=== PATIENT | female | born 1965 | race Caucasian/White ===

== ENCOUNTER 2021-05-01 21:39 | Emergency (ER) | payer SELFPAY ==
[~2021-05-01] VITALS: Ht 152.4 cm; Wt 72.7 kg
[2021-05-01 21:42] VITALS: BP 131/92
== END 2021-05-02 00:15 | disposition left against medical advice (07) ==
LOC: EMS 21:45
DX: M79.89 Other specified soft tissue disorders (principal); Z53.21 Procedure and treatment not carried out due to patient leaving prior to being seen by health care provider

== ENCOUNTER 2021-05-12 23:25 | Inpatient (IN) | payer MEDICARE, OTHER ==
[~2021-05-12] VITALS: Ht 152.4 cm; Wt 99.8 kg
[2021-05-13] MEDS ORDERED: DiphenhydrAMINE HCL 50 MG/ML VIAL IM ONE ×2 (00:45→19:45)
[2021-05-13] MEDS ORDERED: HALOPERIDOL LACTATE 5 MG/ML VIAL IM ONE ×2 (00:45→19:45)
[2021-05-13] MEDS ORDERED: LORazepam 2 MG/ML VIAL IM ONE ×2 (00:45→19:45)
[2021-05-13] MEDS ORDERED: HALOPERIDOL 5 MG TABLET PO PRN (01:15)
[2021-05-13] MEDS ORDERED: ZOLPIDEM TARTRATE 10 MG TABLET PO PRN (01:15)
[2021-05-13 02:07] LABS: BASOPHILS % (AUTO) 0.5 % (0.0-2.0); EOSINOPHILS % (AUTO) 2.6 % (1.0-6.0); HEMATOCRIT 39.1 % (36-46); HEMOGLOBIN 13.2 g/dL (12.0-16.0); LYMPHOCYTES # (AUTO) 1.6 K/uL (1.0-4.8); LYMPHOCYTES % (AUTO) 21.5 % (22.0-44.0); MEAN CORPUSCULAR HEMOGLOBIN 30.5 pg (26.0-34.0); MEAN CORPUSCULAR HGB CONC 33.8 G/dL (31.0-37.0); MEAN CORPUSCULAR VOLUME 90 fL (80-100); MONOCYTES # (AUTO) 0.5 K/uL (0.1-1.0); MONOCYTES % (AUTO) 6.7 % (2.0-9.0); NEUTROPHILS # (AUTO) 5.2 K/uL (1.8-7.7); NEUTROPHILS % (AUTO) 68.7 % (40.0-70.0); PLATELET COUNT (AUTO) 314 K/uL (150-450); RED BLOOD CELL COUNT(AUTO) 4.34 MIL/uL (4.00-5.20); RED CELL DISTRIBUTION WIDTH 13.8 % (11.5-14.5)
[2021-05-13 02:14] LABS: ANION GAP 12 mmol/L (8-16); CALCIUM, TOTAL 9.2 mg/dL (8.8-10.5); CARBON DIOXIDE 24 mmol/L (22-29); CHLORIDE 107 mmol/L (98-107); CREATININE 0.74 mg/dL (0.60-1.30); GLOMERULAR FILTR. RATE CALC > 60 mL/min (>60); GLUCOSE,RANDOM 111 mg/dL (70-110); POTASSIUM 3.2 mmol/L (3.5-5.1); SODIUM SERUM 143 mmol/L (136-145); UREA NITROGEN, BLOOD 11 mg/dL (7-18)
[2021-05-13 02:21] LABS: ALANINE AMINOTRANSFERASE 59 U/L (12-78); ALBUMIN 3.9 g/dL (3.4-5.0); ALKALINE PHOSPHATASE 98 U/L (46-116); ASPARTATE AMINOTRANSFERASE 40 U/L (15-37); BILIRUBIN,TOTAL 0.5 mg/dL (0.1-1.0); TOTAL PROTEIN, SERUM 7.4 g/dL (6.4-8.2)
[2021-05-13] MEDS ORDERED: ChlorproMAZINE HCL 50 MG/2 ML AMP IM ONE (02:30)
[2021-05-13 02:56] LABS: GLUCOSE,POINT OF CARE 112 MG/DL (70-110)
[2021-05-13] MEDS ORDERED: POTASSIUM CHLORIDE 20 MEQ ER TABLET PO ONE (05:30)
[2021-05-13 06:44] LABS: COVID AG,FIA SOURCE NASOPHARYNGEAL
[2021-05-13 13:10] VITALS: BP 127/76
[2021-05-13 16:26] VITALS: BP 123/63
[2021-05-13] MEDS ORDERED: LORazepam 2 MG/ML VIAL ONE (19:37)
[2021-05-13] MEDS ORDERED: DiphenhydrAMINE HCL 50 MG/ML VIAL ONE (19:37)
[2021-05-13] MEDS ORDERED: HALOPERIDOL LACTATE 5 MG/ML VIAL ONE (19:37)
[2021-05-14] MEDS: LORazepam 2 MG TABLET PO PRN ×2 (03:35→08:52)
[2021-05-14] MEDS: ACETAMINOPHEN 325 MG TABLET PO PRN ×2 (03:36→15:19)
[2021-05-14] MEDS ORDERED: NICOTINE 14 MG/24 HOUR PATCH TD PRN (07:30)
[2021-05-14] MEDS ORDERED: ACETAMINOPHEN 325 MG TABLET PO PRN (07:30)
[2021-05-14] MEDS ORDERED: MAG HYDROX/AL HYDROX/SIMETH ES 30 ML SUSPENSION UDCUP PO PRN (07:30)
[2021-05-14] MEDS ORDERED: CloNIDine HCL 0.1 MG TABLET PO PRN (07:30)
[2021-05-14] MEDS ORDERED: LOPERAMIDE HCL 2 MG CAPSULE PO PRN (07:30)
[2021-05-14] MEDS ORDERED: ALBUTEROL SULFATE HFA 90 MCG/PUFF 8 GM INHALER IH PRN (07:30)
[2021-05-14] MEDS ORDERED: MAGNESIUM HYDROXIDE SUSPENSION 30 ML UDCUP PO PRN (07:30)
[2021-05-14] MEDS ORDERED: GuaiFENesin/D-METHORPHAN [SUGAR-FREE] 200-20MG/10 ML SYRUP UDCUP PO PRN (07:30)
[2021-05-14] MEDS ORDERED: DOCUSATE SODIUM 100 MG CAPSULE PO PRN (07:30)
[2021-05-14] MEDS ORDERED: PETROLATUM,WHITE 28 GM JELLY TP PRN (07:30)
[2021-05-14] MEDS ORDERED: ONDANSETRON HCL 4 MG TABLET PO PRN (07:30)
[2021-05-14 08:53] VITALS: BP 120/71
[2021-05-14] MEDS: IBUPROFEN 400 MG TABLET PO PRN (08:53)
[2021-05-14 09:12] VITALS: BP 131/65
[2021-05-14 09:53] VITALS: BP 124/70
[2021-05-14] MEDS: OLANZapine 5 MG TABLET PO SCH ×2 (10:29→16:37)
[2021-05-14 16:09] VITALS: BP 118/70
[2021-05-14] MEDS: GABAPENTIN 300 MG CAPSULE PO SCH (19:52)
[2021-05-15 00:04] VITALS: BP 121/73
[2021-05-15 07:15] VITALS: BP 121/73
[2021-05-15 08:17] LABS: ALANINE AMINOTRANSFERASE 58 U/L (12-78); ALBUMIN 3.7 g/dL (3.4-5.0); ALKALINE PHOSPHATASE 76 U/L (46-116); ANION GAP 8 mmol/L (8-16); BILIRUBIN,TOTAL 0.5 mg/dL (0.1-1.0); CALCIUM, TOTAL 9.4 mg/dL (8.8-10.5); CARBON DIOXIDE 26 mmol/L (22-29); CHLORIDE 109 mmol/L (98-107); CHOL/HDL RATIO 3.3 (3.9-5.7); CHOLESTEROL 153 mg/dL (131-200); CREATININE 0.66 mg/dL (0.60-1.30); FREE T4 (FREE THYROXINE) 1.38 ng/dL (0.76-1.46); GLOMERULAR FILTR. RATE CALC > 60 mL/min (>60); GLUCOSE,RANDOM 100 mg/dL (70-110); HDL CHOLESTEROL 47 mg/dL (40-60); LDL CHOL (CALC.) 73 mg/dL (0-130); PHOSPHORUS 4.2 mg/dL (2.5-4.9); SODIUM SERUM 143 mmol/L (136-145); THYROID STIMULATING HORMONE 1.84 uIU/mL (0.36-3.74); TOTAL PROTEIN, SERUM 7.2 g/dL (6.4-8.2); TRIGLYCERIDES 167 mg/dL (15-150); UREA NITROGEN, BLOOD 10 mg/dL (7-18)
[2021-05-15 08:26] LABS: ASPARTATE AMINOTRANSFERASE 46 U/L (15-37)
[2021-05-15 08:53] VITALS: BP 130/76
[2021-05-15] MEDS: OLANZapine 5 MG TABLET PO SCH ×2 (09:00→16:24)
[2021-05-15] MEDS: CEPHALEXIN MONOHYDRATE 500 MG CAPSULE PO SCH ×3 (10:01→16:24)
[2021-05-15] MEDS: SULFAMETHOX/TRIMETH DS 800-160 MG/TABLET PO SCH ×2 (10:01→16:24)
[2021-05-15] MEDS: GABAPENTIN 300 MG CAPSULE PO SCH ×2 (10:01→16:24)
[2021-05-15 10:09] VITALS: BP 130/76
[2021-05-15 16:05] VITALS: BP 108/73
[2021-05-15 16:12] VITALS: BP 108/73
[2021-05-16 00:30] VITALS: BP 133/79
[2021-05-16 08:22] LABS: HEMOGLOBIN A1C 5.9 % (3.8-5.6)
[2021-05-16 08:32] LABS: CHOL/HDL RATIO 3.2 (3.9-5.7); FREE T4 (FREE THYROXINE) 1.31 ng/dL (0.76-1.46); MAGNESIUM 2.4 mg/dL (1.80-2.40); PHOSPHORUS 4.8 mg/dL (2.5-4.9); POTASSIUM 3.8 mmol/L (3.5-5.1); THYROID STIMULATING HORMONE 2.66 uIU/mL (0.36-3.74)
[2021-05-16 08:33] VITALS: BP 134/80
[2021-05-16] MEDS: SULFAMETHOX/TRIMETH DS 800-160 MG/TABLET PO SCH ×2 (08:47→17:11)
[2021-05-16] MEDS: GABAPENTIN 300 MG CAPSULE PO SCH ×2 (08:47→16:49)
[2021-05-16] MEDS: CEPHALEXIN MONOHYDRATE 500 MG CAPSULE PO SCH ×3 (08:47→17:11)
[2021-05-16] MEDS: OLANZapine 5 MG TABLET PO SCH ×2 (08:47→16:48)
[2021-05-16] MEDS: ACETAMINOPHEN 325 MG TABLET PO PRN ×2 (10:25→16:59)
[2021-05-16 11:00] VITALS: BP 134/80
[2021-05-16 16:11] VITALS: BP 120/75
[2021-05-16 21:40] VITALS: BP 146/85
[2021-05-16] MEDS: IBUPROFEN 400 MG TABLET PO PRN (21:40)
[2021-05-17 00:13] VITALS: BP 139/78
[2021-05-17 00:44] VITALS: BP 121/68
[2021-05-17] MEDS: ACETAMINOPHEN 325 MG TABLET PO PRN (00:49)
[2021-05-17 08:07] VITALS: BP 138/63
[2021-05-17 09:20] VITALS: BP 138/63
[2021-05-17] MEDS: CEPHALEXIN MONOHYDRATE 500 MG CAPSULE PO SCH ×2 (09:30→12:24)
[2021-05-17] MEDS: SULFAMETHOX/TRIMETH DS 800-160 MG/TABLET PO SCH (09:31)
[2021-05-17] MEDS: GABAPENTIN 300 MG CAPSULE PO SCH (09:31)
[2021-05-17] MEDS: OLANZapine 5 MG TABLET PO SCH (09:31)
[2021-05-17] MEDS ORDERED: OLAN5TAB52 PO (13:05)
[2021-05-17] MEDS ORDERED: GABA-1181 PO (13:06)
[2021-05-17] MEDS ORDERED: BACTDSB PO (13:21)
[2021-05-17] MEDS ORDERED: CEPH500C3 PO (13:21)
== END 2021-05-17 13:55 | disposition home or self-care (01) | DRG 885 ==
LOC: EMS 23:27 → B2S 05-13 12:22 → UNDOADMIN 05-13 12:22 → B2S 05-14 15:22
PROVIDERS: ADMIT Psychiatry & Neurology Psychiatry; ATTEND Psychiatry & Neurology Psychiatry
DX: F20.9 Schizophrenia, unspecified (principal); E87.6 Hypokalemia; F31.9 Bipolar disorder, unspecified; Z20.822 Contact with and (suspected) exposure to COVID-19; R73.9 Hyperglycemia, unspecified; F41.1 Generalized anxiety disorder; I10 Essential (primary) hypertension; Z78.1 Physical restraint status
CPT/HCPCS: 80053; 80061; 82962; 83036; 83735; 84100; 84132; 84439; 84443; 85025; 99291; G0480; J1200; J1630; J2060; J3230

== ENCOUNTER 2022-03-26 12:23 | Inpatient (IN) | payer OTHER ==
[~2022-03-26] VITALS: Ht 152.4 cm; Wt 91.1 kg
[~2022-03-26 12:23] MED LIST: BACTDSB PO; CEPH-558 PO; GABA-1181 PO; OLAN5TAB52 PO
[2022-03-26 14:23] LABS: AMPHET/METH SCREEN,URINE NEGATIVE (NEGATIVE); BARBITURATE SCREEN, URINE NEGATIVE (NEGATIVE); BENZODIAZEPINES SCREEN,URINE NEGATIVE (NEGATIVE); CANNABINOID SCREEN,URINE NEGATIVE (NEGATIVE); COCAINE SCREEN,URINE NEGATIVE (NEGATIVE); METHADONE SCREEN, URINE NEGATIVE (NEGATIVE); OPIATE SCREEN,URINE POSITIVE (NEGATIVE)
[2022-03-26 14:24] LABS: PHENCYCLIDINE SCREEN,URINE NEGATIVE (NEGATIVE)
[2022-03-26 14:28] LABS: COVID AG,FIA SOURCE NASOPHARYNGEAL
[2022-03-26 14:36] LABS: BASOPHILS % (AUTO) 0.3 % (0.0-2.0); EOSINOPHILS % (AUTO) 3.7 % (1.0-6.0); HEMATOCRIT 36.5 % (36-46); HEMOGLOBIN 12.2 g/dL (12.0-16.0); LYMPHOCYTES # (AUTO) 1.9 K/uL (1.0-4.8); LYMPHOCYTES % (AUTO) 16.1 % (22.0-44.0); MEAN CORPUSCULAR HEMOGLOBIN 29.8 pg (26.0-34.0); MEAN CORPUSCULAR HGB CONC 33.4 G/dL (31.0-37.0); MEAN CORPUSCULAR VOLUME 89 fL (80-100); MONOCYTES # (AUTO) 0.7 K/uL (0.1-1.0); MONOCYTES % (AUTO) 6.2 % (2.0-9.0); NEUTROPHILS # (AUTO) 8.7 K/uL (1.8-7.7); NEUTROPHILS % (AUTO) 73.7 % (40.0-70.0); PLATELET COUNT (AUTO) 408 K/uL (150-450); RED BLOOD CELL COUNT(AUTO) 4.09 MIL/uL (4.00-5.20); RED CELL DISTRIBUTION WIDTH 13.1 % (11.5-14.5)
[2022-03-26 14:40] LABS: ANION GAP 10 mmol/L (8-16); CARBON DIOXIDE 28 mmol/L (22-29); CHLORIDE 106 mmol/L (98-107); CREATININE 0.72 mg/dL (0.60-1.30); GLOMERULAR FILTR. RATE CALC > 60 mL/min (>60); GLUCOSE,RANDOM 102 mg/dL (70-110); POTASSIUM 3.6 mmol/L (3.5-5.1); SODIUM SERUM 144 mmol/L (136-145); UREA NITROGEN, BLOOD 12 mg/dL (7-18)
[2022-03-26 14:47] LABS: ALANINE AMINOTRANSFERASE 37 U/L (12-78); ALKALINE PHOSPHATASE 118 U/L (46-116); ASPARTATE AMINOTRANSFERASE 27 U/L (15-37); BILIRUBIN,TOTAL 0.4 mg/dL (0.1-1.0); TOTAL PROTEIN, SERUM 7.9 g/dL (6.4-8.2)
[2022-03-26] MEDS: HALOPERIDOL 5 MG TABLET PO PRN (18:39)
[2022-03-26] MEDS: LORazepam 2 MG TABLET PO PRN (18:40)
[2022-03-26] MEDS: LORazepam 2 MG/ML VIAL IM ONE ×2 (19:49→20:03)
[2022-03-26] MEDS: DiphenhydrAMINE HCL 50 MG/ML VIAL IM ONE ×2 (19:50→20:04)
[2022-03-26] MEDS: HALOPERIDOL LACTATE 5 MG/ML VIAL IM ONE ×2 (19:50→20:04)
[2022-03-26] MEDS: ZOLPIDEM TARTRATE 10 MG TABLET PO PRN (20:43)
[2022-03-26] MEDS: AmLODIPine BESYLATE 5 MG TABLET PO SCH (20:43)
[2022-03-26 20:54] VITALS: BP 168/99
[2022-03-26] MEDS ORDERED: PNEUMOCOCCAL VACCINE POLYVALENT 0.5 ML VIAL [PPSV23] IM. ONE (21:30)
[2022-03-27] MEDS: LORazepam 2 MG TABLET PO PRN (02:13)
[2022-03-27] MEDS: HALOPERIDOL 5 MG TABLET PO PRN (02:13)
[2022-03-27] MEDS ORDERED: MAG HYDROX/AL HYDROX/SIMETH ES 30 ML SUSPENSION UDCUP PO PRN (06:15)
[2022-03-27] MEDS ORDERED: NICOTINE 14 MG/24 HOUR PATCH TD PRN (06:15)
[2022-03-27] MEDS ORDERED: IBUPROFEN 400 MG TABLET PO PRN (06:15)
[2022-03-27] MEDS ORDERED: MAGNESIUM HYDROXIDE SUSPENSION 30 ML UDCUP PO PRN (06:15)
[2022-03-27] MEDS ORDERED: ACETAMINOPHEN 325 MG TABLET PO PRN (06:15)
[2022-03-27] MEDS ORDERED: DOCUSATE SODIUM 100 MG CAPSULE PO PRN (06:15)
[2022-03-27] MEDS ORDERED: ALBUTEROL SULFATE HFA 90 MCG/PUFF 8 GM INHALER IH PRN (06:15)
[2022-03-27] MEDS ORDERED: ONDANSETRON HCL 4 MG TABLET PO PRN (06:15)
[2022-03-27] MEDS ORDERED: GuaiFENesin/D-METHORPHAN [SUGAR-FREE] 200-20MG/10 ML SYRUP UDCUP PO PRN (06:15)
[2022-03-27] MEDS ORDERED: LOPERAMIDE HCL 2 MG CAPSULE PO PRN (06:15)
[2022-03-27] MEDS ORDERED: CloNIDine HCL 0.1 MG TABLET PO PRN (06:15)
[2022-03-27] MEDS ORDERED: PETROLATUM,WHITE 28 GM JELLY TP PRN (06:15)
[2022-03-27 08:01] VITALS: BP 152/93
[2022-03-27] MEDS: AmLODIPine BESYLATE 5 MG TABLET PO SCH (08:06)
[2022-03-27] MEDS: GABAPENTIN 300 MG CAPSULE PO SCH ×2 (11:23→15:55)
[2022-03-27] MEDS: LITHIUM CARBONATE 300 MG CAPSULE PO SCH (15:55)
[2022-03-27 16:19] VITALS: BP 137/85
[2022-03-27 17:26] VITALS: BP 140/88
[2022-03-27] MEDS: OLANZapine 7.5 MG TABLET PO SCH (20:01)
[2022-03-28] MEDS: ZOLPIDEM TARTRATE 10 MG TABLET PO PRN (03:08)
[2022-03-28] MEDS: LORazepam 2 MG TABLET PO PRN ×2 (03:08→08:40)
[2022-03-28 08:06] VITALS: BP 110/74
[2022-03-28] MEDS: AmLODIPine BESYLATE 10 MG TABLET PO SCH (08:40)
[2022-03-28] MEDS: GABAPENTIN 300 MG CAPSULE PO SCH ×2 (08:41→17:28)
[2022-03-28] MEDS: LITHIUM CARBONATE 300 MG CAPSULE PO SCH ×2 (08:41→17:28)
[2022-03-28 10:13] LABS: CHOL/HDL RATIO 3.5 (3.9-5.7)
[2022-03-28 10:21] LABS: HEMOGLOBIN A1C 6.3 % (3.8-5.6)
[2022-03-28] MEDS: HALOPERIDOL 5 MG TABLET PO PRN ×2 (15:43→20:09)
[2022-03-28 16:17] VITALS: BP 113/69
[2022-03-28] MEDS: OLANZapine 7.5 MG TABLET PO SCH (20:09)
[2022-03-29] MEDS: ZOLPIDEM TARTRATE 10 MG TABLET PO PRN (01:56)
[2022-03-29 08:22] LABS: HEMOGLOBIN A1C 6.1 % (3.8-5.6)
[2022-03-29 08:24] VITALS: BP 104/54
[2022-03-29] MEDS: GABAPENTIN 300 MG CAPSULE PO SCH (09:10)
[2022-03-29] MEDS: LITHIUM CARBONATE 300 MG CAPSULE PO SCH (09:10)
[2022-03-29] MEDS: AmLODIPine BESYLATE 10 MG TABLET PO SCH (09:10)
[2022-03-29] MEDS ORDERED: LITH300C3 PO (09:38)
[2022-03-29] MEDS ORDERED: GABA-1181 PO (09:38)
[2022-03-29] MEDS ORDERED: OLAN7.5T22 PO (09:38)
[2022-03-29] MEDS ORDERED: AMLO-258 PO (10:36)
== END 2022-03-29 13:05 | disposition home or self-care (01) | DRG 885 ==
LOC: EMS 12:25 → 3EC 15:57
PROVIDERS: ADMIT Psychiatry & Neurology Child & Adolescent Psychiatry; ATTEND Psychiatry & Neurology Child & Adolescent Psychiatry
DX: F31.4 Bipolar disorder, current episode depressed, severe, without psychotic features (principal); R45.851 Suicidal ideations; Z20.822 Contact with and (suspected) exposure to COVID-19; D72.829 Elevated white blood cell count, unspecified; F10.10 Alcohol abuse, uncomplicated; F20.9 Schizophrenia, unspecified; I10 Essential (primary) hypertension; F19.10 Other psychoactive substance abuse, uncomplicated; Z71.41 Alcohol abuse counseling and surveillance of alcoholic
CPT/HCPCS: 80053; 80061; 83036; 84478; 85025; 99285; G0480; J1200; J1630; J2060